=== PATIENT | male | born 1990 | race Two or more races ===

== ENCOUNTER 2022-05-11 21:30 | Emergency (ER) | payer SELFPAY ==
[2022-05-11] MEDS ORDERED: PERTUSS(ACELL),DIPH,TET VAC/PF 0.5 ML SYRINGE IM. ONE (22:30)
[2022-05-11] MEDS ORDERED: BACITRACIN 0.9 GM PACKET OINTMENT TP ONE (22:30)
[2022-05-11 23:00] VITALS: BP 135/88
== END 2022-05-11 23:53 | disposition home or self-care (01) ==
LOC: EMS 21:32
DX: S00.81XA Abrasion of other part of head, initial encounter (principal); F12.90 Cannabis use, unspecified, uncomplicated; F15.10 Other stimulant abuse, uncomplicated; Y08.89XA Assault by other specified means, initial encounter; Y93.89 Activity, other specified; Y92.89 Other specified places as the place of occurrence of the external cause; Y99.8 Other external cause status
CPT/HCPCS: 90471; 90715; 99283